=== PATIENT | male | born 1975 | race Caucasian/White ===

== ENCOUNTER 2017-03-08 18:36 | Emergency (ER) | payer MEDICAID ==
--- NOTE | 2017-03-08 20:45 | ED Physician Chart ---
ED Chief Complaint/HPI - Patient Information Date Seen:: 03/08/17 Time Seen:: 20:44 Chief Complaint:: Scalp laceration, right forearm laceration History of Present Illness:: 41 yo male slipped on a wet bathroom floor and fell through a window. He had a V -shaped laceration (3cm x 3cm) to his parietal scalp and a 4 cm laceration to his right forearm. Patient denied loss of consciousness. Allergies:: Allergies Allergy/AdvReac Type Severity Reaction Status Date / Time No Known Allergies Allergy Verified 03/08/17 19:36 Vitals:: Vital Signs - 8 hr 03/08/17 19:36 Temp 97.7 F HR 84 RR 16 BP 126/102 O2 Sat % 100 ED Review of Systems - Review of Systems General/Constitutional: No fever Skin: Skin lesions Head: Headache Eyes: No loss of vision ENT: No earache Neck: No neck pain Cardio Vascular: No chest pain Pulmonary: No SOB GI: No nausea, No vomiting Musculoskeletal: No bone or joint pain ED Past Medical History - Past Medical History Past Medical History: No significant medical hx Social History: Smoker, No Alcohol, Illicit Drug Use (marijuana) Psychiatricy History: Schizophrenia ED Physical Exam - Physical Examination General/Constitutional: Awake Other Head comments:: V-shaped laceration (3cm x 3cm) to the parietal scalp Eyes: PERRL Skin: No rash ENMT: Nasal exam nl Neck: No nuchal rigidity Respiratory: Clear to Auscultation Cardio Vascular: RRR, No murmur, gallop, rubs, NL S1 S2 GI: No tenderness/rebounding/guarding Other Extremities comments:: a 4 cm laceration to his right forearm Neuro/Psych: No focal deficits ED Assessment - Assessment General Assessment: Scalp laceration Right forearm laceration Assessment/Comments:: Tylenol PO Repair lacerations UA, urine drug screen TDAP Rocephin IM D/c home Keflex PO F/u PCP or return to ER for suture removal in 10-14 days Laceration Type:: Simple Prep/Irrigation:: After cleaning with saline, hydrogen peroxide and betadine, 1% lidocaine was used to achieve local anesthesia. Comments: The parietal scalp laceration (6cm in length) was closed by radha. The right forearm laceration (4cm in length) was closed by 4.0 prolene horizontal mattress sutures. Patient tolerated well without complication. ED Septic Shock - . Is Septic Shock (SBP<90, OR Lactate>4 mmol\L) present?: No - <6hrs of presentation: Vital Signs: Vital Signs - 8 hr 03/08/17 19:36 Temp 97.7 F HR 84 RR 16 BP 126/102 O2 Sat % 100 ED Reassessment (Disposition) - Reassessment Reassessment Condition:: Improved - Patient Disposition Discharge/Transfer:: Home ED Discharge Plan - Patient Disposition Admit/Discharge/Transfer: PT DISCHARGED HOME Condition at Disposition: Improved Prescriptions: Cephalexin [Keflex] 500 mg PO TID #15 cap Instructions: Head Injury, Adult, Laceration Care, Adult
[2017-03-09] MEDS ORDERED: Triple Antibiotic 0.94 gm Pkt TP ONE (01:43)
[2017-03-09 01:45] LABS: URINE MICROSCOPIC INDICATED? YES; URINE SOURCE RANDOM
[2017-03-09 01:49] LABS: URINE BILIRUBIN NEGATIVE (NEGATIVE); URINE BLOOD LARGE (NEGATIVE); URINE GLUCOSE (UA) NEGATIVE (NEGATIVE); URINE KETONE NEGATIVE (NEGATIVE); URINE LEUKOCYTE ESTERASE NEGATIVE (NEGATIVE); URINE NITRATE NEGATIVE (NEGATIVE); URINE PH 6.5 (4.6 - 8.0); URINE PROTEIN NEGATIVE (NEGATIVE); URINE UROBILINOGEN 0.2 E.U./dL (0.2 - 1.0)
[2017-03-09 01:59] LABS: URINE CLARITY CLEAR (CLEAR); URINE COLOR OTHER
[2017-03-09 02:00] LABS: URINE BACTERIA FEW /hpf (NONE SEEN); URINE EPITHELIAL CELLS FEW /lpf (FEW); URINE WBC 0-2 /hpf (0-5)
[2017-03-09 02:01] LABS: AMPHETAMINE URINE NEGATIVE (NEGATIVE); BARBITURATES URINE NEGATIVE (NEGATIVE); BENZODIAZEPINES QUAL URINE NEGATIVE (NEGATIVE); CANNABINOID THC NEGATIVE (NEGATIVE); COCAINE METABOLITE QUAL URINE NEGATIVE (NEGATIVE); METHADONE URINE NEGATIVE (NEGATIVE); METHAMPHETAMINES QUAL URINE NEGATIVE (NEGATIVE); OPIATES (MORPHINE) QUAL. URINE NEGATIVE (NEGATIVE); PHENCYCLIDINE (PCP) URINE NEGATIVE (NEGATIVE); TRICYCLICS (TCA) QUAL. URINE NEGATIVE (NEGATIVE)
== END 2017-03-09 02:53 | disposition home or self-care (01) ==
LOC: ER 18:36
DX: S01.01XA Laceration without foreign body of scalp, initial encounter (principal); S51.811A Laceration without foreign body of right forearm, initial encounter; F17.200 Nicotine dependence, unspecified, uncomplicated; X58.XXXA Exposure to other specified factors, initial encounter; Y93.89 Activity, other specified; Y92.89 Other specified places as the place of occurrence of the external cause; Y99.8 Other external cause status
CPT/HCPCS: 99284; 12004; 80307; 81001; 96372; 90715; J0696; J2001; Z7502; Z7610

== ENCOUNTER 2017-03-30 16:04 | Emergency (ER) | payer MEDICAID ==
--- NOTE | 2017-03-30 17:04 | ED Physician Chart ---
ED Chief Complaint/HPI - Patient Information Date Seen:: 03/30/17 Time Seen:: 16:15 Chief Complaint:: Wound Check History of Present Illness:: pt is S/P sutures x 5 Right Forearm and radha x 9 Right Frontal Scalp on 03/10 17; pt presents for wounds check and removal of sutures/radha; pt has no complaints; pt denies LOC, ALOC, AMS, recent trauma, H/As, neck pain, C/P, SOB, Abd. Pain, A/n/v/d/c, fever, chills, or urinary s/s; pt's last tetanus shot: < 5 years; UTD Allergies:: Allergies Allergy/AdvReac Type Severity Reaction Status Date / Time No Known Allergies Allergy Verified 03/08/17 19:36 Vitals:: Vital Signs - 8 hr 03/30/17 03/30/17 16:16 16:43 Temp 98.4 F 98.4 F HR 87 87 RR 16 16 BP 113/76 113/76 O2 Sat % 100 100 Historian:: Patient Review:: Nurse's Note Reviewed ED Review of Systems - Review of Systems General/Constitutional: No fever, No chills, No weight loss, No weakness, No diaphoresis, No edema, No loss of appetite Skin: Skin lesions, No rash, No bruising Head: No headache, No light-headedness Eyes: No loss of vision, No pain, No diplopia ENT: No earache, No nasal drainage, No sore throat, No tinnitus Neck: No neck pain, No swelling, No thyromegaly, No stiffness, No mass noted Cardio Vascular: No chest pain, No palpitations, No PND, No orthopnea, No edema Pulmonary: No SOB, No cough, No sputum, No wheezing GI: No nausea, No vomiting, No diarrhea, No pain, No melena, No hematochezia, No constipation, No hematemesis G/U: No dysuria, No frequency, No hematuria, No nacturia Musculoskeletal: No bone or joint pain, No back pain, No muscle pain Endocrine: No polyuria, No polydipsia Psychiatric: No prior psych history, No depression, No anxiety, No suicidal ideation, No homicidal ideation, No auditory hallucination, No visual hallucination Hematopoietic: No bruising, No lymphadenopathy Allergic/Immuno: No urticaria, No angioedema Neurological: No syncope, No focal symptoms, No weakness, No paresthesia, No headache, No seizure, No dizziness, No confusion, No vertigo ED Past Medical History - Past Medical History Obtainable: Yes Past Medical History: No significant medical hx Family History: HTN Social History: Non Smoker, No Alcohol, No Drug Use, Single, Employed Surgical History: None Psychiatricy History: None Medication: Reviewed Family Medical History - Family Member Mother History Unknown: Yes ED Physical Exam - Physical Examination General/Constitutional: Awake, Well-developed, well-nourished, Alert, No distress, GCS 15, Non-toxic appearing, Ambulatory Head: Atraumatic Eyes: Lids, conjuctiva normal, PERRL, EOMI Skin: Nl inspection, No rash, No skin lesions, No ecchymosis, Well hydrated, No lymphadenopathy Other Skin comments:: Right Frontal Scalp and Right forearm wounds: healing well; no s/s of infection ; no ligament instability; full ROMs of all joints; good motor, tendon, and sensory functions; good NV functions ENMT: External ears, nose nl, Nasal exam nl, Lips, teeth, gums nl Neck: Nontender, Full ROM w/o pain, No JVD, No nuchal rigidity, No bruit, No mass, No stridor Other Neck comments:: supple; no meningeal signs; no cervical tenderness; no bruits Respiratory: Nl effort/Exclusion, Clear to Auscultation, No Wheeze/Rhonchi/Rales Cardio Vascular: RRR, No murmur, gallop, rubs, NL S1 S2, Carotid/Femoral/Distal pulses equal bilaterally GI: No tenderness/rebounding/guarding, No organomegaly, No hernia, Normal BS's, Nondistended, No mass/bruits, No McBurney tenderness Other GI comments:: no pulsatile masses : No CVA tenderness Extremities: No tenderness or effusion, Full ROM, normal strength in all extremities, No edema, Normal digits & nails Neuro/Psych: Alert/oriented, DTR's symmetric, Normal sensory exam, Normal motor strength, Judgement/insight normal, Mood normal, Normal gait, No focal deficits Misc: Normal back, No paraspinal tenderness ED Assessment - Procedures Procedures:: Removal of all sutures and radha; no complications; neosporin ointment and dressings applied Informed Consent: Procedure/risk/benefits explained by MD: Yes ED Septic Shock - . Is Septic Shock (SBP<90, OR Lactate>4 mmol\L) present?: No - <6hrs of presentation: Vital Signs: Vital Signs - 8 hr 03/30/17 03/30/17 16:16 16:43 Temp 98.4 F 98.4 F HR 87 87 RR 16 16 BP 113/76 113/76 O2 Sat % 100 100 ED Reassessment (Disposition) - Reassessment Reassessment:: pt is asymptomatic upon discharge Reassessment Condition:: Improved - Diagnosis Diagnosis:: Wounds; Suture/Staple Removal; Old head injury - Aftercare/Follow up Instructions Aftercare/Follow-Up Instructions:: Counseled pt regarding lab results/diagnosis & need follow up, Refer to Discharge Instructions, Counseled pt & family regarding lab results/diagnosis & need follow up Medication Prescribed:: Neosporin ointment bid x 7 days; Wound Care/Head injury instructions - Patient Disposition Discharge/Transfer:: Home Condition at Disposition:: Stable, Improved (RTER prn if existing s/s reoccur and/or get worse and/or any other new s/s occur; ACIs given for all above Dx; Refer to Vascular Surgeon/Orthopedist/Machinery Mechanic [facility]; F/U with PMD in one day or prn; RTER prn if concerned) ED Discharge Plan - Patient Disposition Admit/Discharge/Transfer: PT DISCHARGED HOME Condition at Disposition: Stable Instructions: Staple Removal, Care After, Suture Removal
== END 2017-03-30 16:52 | disposition home or self-care (01) ==
LOC: ER 16:04
DX: S09.90XD Unspecified injury of head, subsequent encounter (principal); Z48.02 Encounter for removal of sutures; Z59.0 Homelessness; X58.XXXD Exposure to other specified factors, subsequent encounter
CPT/HCPCS: Z7502